=== PATIENT | female | born 1945 | race Caucasian/White ===

== ENCOUNTER → 2019-09-02 | Outpatient (CLI) | payer OTHER ==
[~2019-09-02] MED LIST: BENAZEPRIL 10 M10 MG PO; CELEBREX 200 M200 MG PO; DULOXETINE HCL30 MG PO; LASIX 40 MG TAB40 MG PO; LYRICA25 MG PO; NORCO 10-325 T1 EACH PO; NORVASC 2.5 MG2.5 M1 PO; OMEPRAZOLE 20 M20 M1 PO; PREDNISONE 5 MG5 M1 PO; TOPROL XL25 MG PO; VITAMIN D31250 MC1 PO; XARELTO20 MG PO; ZOCOR 20 MG TAB20 M1 PO
[2019-09-02 11:35] VITALS: BP 189/59
[2019-09-02 14:30] VITALS: BP 154/55
[2019-09-02 15:45] VITALS: BP 142/66
--- NOTE | 2019-09-02 16:11 | NUR ---
IN FOR 1ST INJECTAFER INFUSION. ADMISSION HISTORY AND ASSESSMENT COMPLETED. IV PLACED IN LT AC AND INFUSED INJECTAFER OVER 20 MINUTES. TOLERATED WELL WITHOUT INCIDENT. OBSERVED FOR 30 MINUTES. POST VITAL SIGNS GOOD. REMOVED IV AND DISMISSED IN STABLE CONDITION. TO RETURN NEXT THURSDAY FOR 2ND INFUSION.
== END ==
LOC: OPONC 14:07
DX: D50.9 Iron deficiency anemia, unspecified (principal); I10 Essential (primary) hypertension; M19.90 Unspecified osteoarthritis, unspecified site; E78.5 Hyperlipidemia, unspecified; Z90.49 Acquired absence of other specified parts of digestive tract; Z90.710 Acquired absence of both cervix and uterus; Z87.891 Personal history of nicotine dependence
CPT/HCPCS: 95000

== ENCOUNTER → 2019-09-09 | Outpatient (CLI) | payer OTHER ==
[2019-09-09 12:45] VITALS: BP 115/41
[2019-09-09 14:25] VITALS: BP 133/45
--- NOTE | 2019-09-09 14:59 | NUR ---
IN FOR 2ND INJECTAFER INFUSION. PATIENT STATED DID NOT HAVE ANY SIDE EFFECTS FROM 1ST INFUSION LAST WEEK AND SHE DID NOT FEEL TIRED. TOLERATED INFUSION WITHOUT INCIDENT. OBSERVED OFR 30 MINUTES. POST VITAL SIGNS GOOD. REMOVED IV AND DISMISSED IN STABLE CONDITION.
== END ==
LOC: OPONC 09:26
DX: D50.9 Iron deficiency anemia, unspecified (principal)
CPT/HCPCS: 95000